=== PATIENT | female | born 1970 | race American Indian/Alaskan Native ===

== ENCOUNTER 2021-07-18 04:19 | Emergency (ER) | payer SELFPAY ==
[2021-07-18 04:47] VITALS: BP 144/86
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
== END 2021-07-18 07:00 | disposition home or self-care (01) ==
LOC: ED 04:19
DX: T14.8XXA Other injury of unspecified body region, initial encounter (principal); V89.2XXA Person injured in unspecified motor-vehicle accident, traffic, initial encounter; X58.XXXA Exposure to other specified factors, initial encounter; Y93.89 Activity, other specified; Y92.89 Other specified places as the place of occurrence of the external cause; Y99.8 Other external cause status
CPT/HCPCS: 99282